=== PATIENT | male | born 1945 | race Caucasian/White ===

== ENCOUNTER 2022-01-12 05:31 | Day surgery (SDC) | payer MEDICARE, OTHER ==
[~2022-01-12] VITALS: Ht 183 cm; Wt 68.0 kg
[~2022-01-12 05:31] MED LIST: AMOX TR-K CLV1 EAC4 PO; BETAPACE80 MG PO; CARBIDOPA-LEVO1 EAC5 PO; CARDIZEM30 MG PO; ELIQUIS2.5 MG PO; ELIQUIS5 MG PO; FLOMAX0.4 MG PO; LEVSIN-SL0.125 MG SL; PANTOPRAZOLE SO40 MG PO; PROSCAR5 MG PO; PROTONIX 40MG T40 MG PO; TAMSULOSIN HCL0.4 MG PO; TRAMADOL HCL50 MG PO
[2022-01-13 06:42] LABS: BASOPHIL 0.1 % (0-2); EOSINOPHIL 0 % (0-7); HCT 35.6 % (42.0-52.0); HGB 12.2 g/dl (13.2-18.0); LYMPHOCYTE 11.7 % (15-48); MCH 32.8 pg (25.0-31.0); MCHC 34.3 g/dL (32.0-36.0); MCV 95.7 fL (78.0-100.0); MONOCYTE 7.6 % (0-12); MPV 9.2 fL (6.0-9.5); NEUTROPHIL 80.2 % (41-80); NRBC 0; PLT 156 K/uL (150-400); RBC 3.72 M/uL (4.70-6.00); RDW 12.2 % (11.5-14.0)
[2022-01-13 07:00] LABS: CREATININE 0.8 mg/dL (0.67-1.17); POTASSIUM 4.2 mmol/L (3.5-5.1)
[2022-01-13] MEDS ORDERED: FEOSOL325 MG PO (08:18)
== END 2022-01-13 11:19 | disposition home or self-care (01) ==
LOC: FAS 05:31 → FMS 09:06 → FAS 01-13 11:19
PROVIDERS: Orthopaedic Surgery
DX: M19.011 Primary osteoarthritis, right shoulder (principal); I48.91 Unspecified atrial fibrillation; G20 Parkinson's disease; K21.9 Gastro-esophageal reflux disease without esophagitis; Z87.891 Personal history of nicotine dependence
CPT/HCPCS: 36415; 73020; 80048; 85025; 86850; 86900; 86901; 94010; 94760; 97116; 97162; 97166; 97535; C1713; C1776; J0171; J0697; J1100; J1885; J2250; J2270; J2704; J2795; J7120

== ENCOUNTER 2022-02-02 08:58 | Emergency (ER) | payer MEDICARE, OTHER ==
[~2022-02-02 08:58] MED LIST changes: +FEOSOL325 MG PO
== END 2022-02-02 15:15 | disposition other institution (70) ==
LOC: FER 08:58
DX: S02.40DA Maxillary fracture, left side, initial encounter for closed fracture (principal); S02.32XA Fracture of orbital floor, left side, initial encounter for closed fracture; S02.40FA Zygomatic fracture, left side, initial encounter for closed fracture; W06.XXXA Fall from bed, initial encounter; Y92.009 Unspecified place in unspecified non-institutional (private) residence as the place of occurrence of the external cause
CPT/HCPCS: 70450; 70486; J1170; J2405